=== PATIENT | male | born 1980 | race Asian ===

== ENCOUNTER 2019-11-14 13:31 | Emergency (ER) | payer OTHER ==
[~2019-11-14] VITALS: Ht 175.3 cm; Wt 89.8 kg
[2019-11-14 13:42] VITALS: Ht 175.3 cm; Wt 89.8 kg
[2019-11-14 14:15] LABS: RED CELL DISTRIBUTION WIDTH 12.8 % (11.5-14.5)
[2019-11-14 14:16] LABS: PLATELET COUNT 315 x10^3mcL (130-400)
[2019-11-14 14:17] LABS: BASOPHIL % 0.4 % (0-2)
[2019-11-14 14:28] LABS: CALCIUM 8.5 mg/dL (8.5-10.1); CHLORIDE SERUM 103 mmol/L (98-107); CREATININE SERUM 1.1 mg/dL (0.7-1.3); GFR1 > 60 mL/min; GLUCOSE SERUM 97 mg/dL (74-106); POTASSIUM SERUM 4.2 mmol/L (3.5-5.1); SODIUM SERUM 138 mmol/L (136-145)
[2019-11-14 14:32] LABS: ALBUMIN 4.1 g/dL (3.4-5.0); ALKALINE PHOSPHATASE 109 U/L (46-116); ALT/SGPT 157 U/L (16-63); AST/SGOT 52 U/L (15-37); BILIRUBIN TOTAL 0.4 mg/dL (0.20-1.00); TOTAL PROTEIN, SERUM 7.7 g/dL (6.4-8.2)
[2019-11-14 17:25] VITALS: BP 116/74
[2019-11-14 17:38] LABS: AMPHETAMINE QUAL UR NONE DETECTED (See below)
== END 2019-11-14 17:25 | disposition home or self-care (01) ==
LOC: ED 13:31
PROVIDERS: Emergency Medicine
DX: R00.2 Palpitations (principal); I10 Essential (primary) hypertension; E78.00 Pure hypercholesterolemia, unspecified; Z98.61 Coronary angioplasty status; Z98.890 Other specified postprocedural states
CPT/HCPCS: 36415